=== PATIENT | male | born 1975 | race Caucasian/White ===

== ENCOUNTER 2016-06-03 13:57 | Emergency (ER) | payer SELFPAY ==
--- NOTE | ~2016-06-03 | CR181 ---
[facility]. [facility] A Service of [facility] & [facility] [place] RADIOLOGY TEXT RESULTS PATIENT: AARON KAUFFMAN JR LOCATION: SED : 73 UNIT #: [id number] AGE: [address]: MARC FELIX SEX: M ORDER DR: [id number] [place] [id number] E MR#: [id number] Acc #: [id number] NAME: AARON KAUFFMAN JR : 1975 SEX: M STUDY DATE/TIME: 06/03/2016 15:14 UNIT: SED ROOM: STUDY DESCRIPTION: CR Lumbar Spine 2 or 3 Views Attending Physician: Marc Felix Ordering Physician: Physician Non-Staff Primary Care Physician: Primary Care Physician No MEDICAL IMAGING REPORT This report is preliminary unless electronic signature is present. EXAM Lumbar spine 3 views, 06/03/2016 INDICATION 40-year-old male with low back pain for 3-4 days. No comparisons. FINDINGS Vertebral body heights and alignment are normal. There is mild disc space narrowing at L5-S1. IMPRESSION Mild disc space narrowing at L5-S1. Dictated by... Oneil Ribeiro M.D. THIS IS AN ELECTRONICALLY VERIFIED REPORT Oneil Ribeiro M.D. at 06/05/2016 7:32 AM RADHA/lida TD: 06/04/2016 03:40 JOB #: [id number] MEDICAL IMAGING REPORT
--- NOTE | ~2016-06-03 | CR63 ---
[facility]. [facility] A Service of [facility] & [facility] RADIOLOGY TEXT RESULTS PATIENT: AARON KAUFFMAN JR LOCATION: SED : 73 UNIT #: [id number] AGE: [address]: MARC FELIX SEX: M ORDER DR: [id number] [place] [id number] E MR#: [id number] Acc #: [id number] NAME: AARON KAUFFMAN JR : 1975 SEX: M STUDY DATE/TIME: 06/03/2016 14:12 UNIT: SED ROOM: STUDY DESCRIPTION: CR Chest 2 View Attending Physician: Marc Felix Ordering Physician: Physician Non-Staff Primary Care Physician: Primary Care Physician No MEDICAL IMAGING REPORT This report is preliminary unless electronic signature is present. EXAM Two-view chest, 06/03/2016 HISTORY Low back pain for 3-4 days. Longstanding smoker. FINDINGS 2 views of the chest demonstrates diffuse prominence of the pulmonary interstitium with fine reticular markings may reflect the sequela of chronic interstitial disease. No acute airspace disease or consolidation. No mass lesions identified. Heart, mediastinum great vessels and bony thorax unremarkable. IMPRESSION Mild diffuse prominence of the pulmonary interstitium could reflect developing interstitial disease. No acute airspace disease or consolidation. No effusions. Dictated by... Daysi Ribeiro M.D. THIS IS AN ELECTRONICALLY VERIFIED REPORT Daysi Ribeiro M.D. at 06/04/2016 2:03 PM SHWETHA/lida TD: 06/03/2016 22:38 JOB #: [id number] MEDICAL IMAGING REPORT
[~2016-06-03 13:57] MED LIST: BACTRIM DS TABL1 TA1 PO; ERY-TAB250 MG PO; NO MEDICATIONS; TYLENOL #3 PO; VICODIN 5/1 TAB 5/50 PO; VOLTAREN50 MG PO; VOLTAREN75 MG PO
== END 2016-06-03 16:29 | disposition home or self-care (01) ==
LOC: SED 13:57
DX: S39.012A Strain of muscle, fascia and tendon of lower back, initial encounter (principal); F17.210 Nicotine dependence, cigarettes, uncomplicated; Z88.0 Allergy status to penicillin; X58.XXXA Exposure to other specified factors, initial encounter; Y92.89 Other specified places as the place of occurrence of the external cause
CPT/HCPCS: 71020; 72100; 96372; 99284; J1885